=== PATIENT | female | born 1995 | race American Indian/Alaskan Native ===

== ENCOUNTER 2019-09-15 20:29 | Emergency (ER) | payer SELFPAY ==
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
--- NOTE | 2019-09-15 21:34 | XRay Report ---
LUMBAR SPINE, AP AND LATERAL VIEWS 09/15/2019 INDICATION / CLINICAL INFORMATION: back pain. COMPARISON: None available. FINDINGS: No compression fractures. Disc interspaces and bony alignment are normal. Transverse processes are intact. SI joints are normal. Signer Name: Yonathan Elliott MD Signed: 09/15/2019 9:30 PM Workstation Name: [id number]
[2019-09-15] MEDS ORDERED: IBUPROFEN 800 MG TAB PO ONE (23:25)
[2019-09-15] MEDS ORDERED: CYCLOBENZAPRINE 10 MG TAB PO ONE (23:25)
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
[2019-09-16 00:49] VITALS: BP 112/69
== END 2019-09-16 00:49 | disposition home or self-care (01) ==
LOC: ED 20:29
DX: S39.012A Strain of muscle, fascia and tendon of lower back, initial encounter (principal); S09.90XA Unspecified injury of head, initial encounter; Z87.891 Personal history of nicotine dependence; Z79.899 Other long term (current) drug therapy; V49.49XA Driver injured in collision with other motor vehicles in traffic accident, initial encounter; Y93.89 Activity, other specified; Y92.410 Unspecified street and highway as the place of occurrence of the external cause; Y99.8 Other external cause status
CPT/HCPCS: 72100